=== PATIENT | female | born 1950 | race Caucasian/White ===

== ENCOUNTER 2017-05-05 14:06 | Emergency (ER) | payer MEDICARE ==
[~2017-05-05] VITALS: Ht 152.4 cm; Wt 76.4 kg
[~2017-05-05 14:06] MED LIST: AMLO5TAB22 PO; CIPR500T4 PO; HYDR-3533 PO; METR-1 PO; OMEP10CA37 PO; PRAV40TA2 PO; ZOFR4TAB3 PO
[2017-05-05 14:47] VITALS: BP 152/72; PULSE 68; RESP 16; TEMP 98.5; O2SAT 96
[2017-05-05] MEDS ORDERED: PRAV40TA2 PO (14:58)
[2017-05-05] MEDS ORDERED: AMLO5TAB2 PO (14:58)
[2017-05-05] MEDS ORDERED: OMEP10CA PO (14:58)
--- NOTE | 2017-05-05 15:30 | PD ---
HPI Chief Complaint: Fall Time Seen by Provider: 15:21 Travel History International Travel<30 days: No Contact w/Intl Traveler<30days: No Traveled to known affect area: No History of Present Illness HPI 67-year-old female complains of left shoulder pain, left hip pain, bilateral knee pain and left ankle pain. Patient states that she fell 2 days ago. Patient denies loss of consciousness. Patient denies any headache or neck pain. Patient complains of sharp pain localized to the posterior aspect left shoulder, lateral aspect left hip, anterior aspect of both knees and the left ankle. Patient denies any chest pain or shortness of breath. Patient denies abdominal pain. Patient denies any back pain. Patient denies any weakness or numbness of the extremity. PFSH Past Medical History Anxiety: Yes Cardiovascular Problems: Yes (htn on meds) High Cholesterol: Yes Diminished Hearing: No GERD: Yes Hypertension: Yes Musculoskeletal: Yes (chronic right knee pain) Immunizations Current: Yes Tetanus Vaccination: < 5 Years Influenza Vaccination: Yes ?: Not Past Surgical History Abdominal Surgery: Yes (COLON RESECTION (OBSTRUCTION)) Section: Yes (X 2) Eye Surgery: Yes (COSMETIC EYE SURGERY) Hysterectomy: Yes Oral Surgery: Yes (dential implant) Other Surgery: Yes (ADHESION RELEASE/TUMMY TUCK) Social History Alcohol Use: Yes (RARELY) Tobacco Use: No (quit 40+yrs anny) Substance Use: No Allergies-Medications (Allergen,Severity, Reaction): Coded Allergies: phenazopyridine (Unverified Allergy, Mild, rash, 05/05/17) Reported Meds & Prescriptions Reported Meds & Active Scripts Active Reported Pravastatin 40 Mg Tab 40 Mg PO DAILY Omeprazole 10 Mg Cap 10 Mg PO DAILY Amlodipine (Amlodipine Besylate) 5 Mg Tab 5 Mg PO DAILY Review of Systems General / Constitutional: No: Fever Eyes: No: Visual changes HENT: No: Headaches Cardiovascular: No: Chest Pain or Discomfort Respiratory: No: Shortness of Breath Gastrointestinal: No: Abdominal Pain Genitourinary: No: Dysuria Musculoskeletal: Positive: Pain Skin: No Rash Neurologic: No: Weakness Psychiatric: No: Depression Endocrine: No: Polydipsia Hematologic/Lymphatic: No: Easy Bruising Physical Exam Narrative GENERAL: Well-nourished, well-developed patient. SKIN: Focused skin assessment warm/dry. HEAD: Normocephalic. EYES: No scleral icterus. No injection or drainage. NECK: Supple, trachea midline. No JVD or lymphadenopathy. CARDIOVASCULAR: Regular rate and rhythm without murmurs, gallops, or rubs. RESPIRATORY: Breath sounds equal bilaterally. No accessory muscle use. GASTROINTESTINAL: Abdomen soft, non-tender, nondistended. MUSCULOSKELETAL: Patient has mild to moderate tenderness diffusely over the left shoulder, lateral aspect left hip, anterior aspect of both knees, diffuse over the anterior lateral aspect the left ankle. Full range of motion all extremity. Joints are stable. No deformity noted. BACK: Nontender without obvious deformity. No CVA tenderness. Neurologic exam normal. Data Data Last Documented VS Vital Signs Date Time Temp Pulse Resp B/P (MAP) Pulse Ox O2 Delivery O2 Flow Rate FiO2 05/05/17 14:50 68 16 95 Room Air 05/05/17 14:47 98.5 152/72 (98) Orders Orders Ankle, Complete ([id number]) (05/05/17 15:25) Hip, Uni(Ap&Lat) W Ap Pelvis (05/05/17 15:25) Knee, Ltd (1 Or 2vws) (05/05/17 15:25) Shoulder, Limited(2vws) (05/05/17 15:25) Knee, Ltd (1 Or 2vws) (05/05/17 15:25) MDM Medical Decision Making Medical Screen Exam Complete: Yes Emergency Medical Condition: Yes Interpretation(s) Last Impressions Shoulder X-Ray 05/05/17 1525 Signed Impressions: Service Date/Time: Friday, May 05, 2017 15:42 - CONCLUSION: 1. Mild degenerative changes in the a.c. joint. 2. No acute fracture. Rolando Jimenez MD Knee X-Ray 05/05/17 152 Signed Impressions: Service Date/Time: Friday, May 05, 2017 15:42 - CONCLUSION: 1. Tricompartmental osteoarthritis. No acute fracture identified. Rolando Jimenez MD Ankle X-Ray 05/05/17 1525 Signed Impressions: Service Date/Time: Friday, May 05, 2017 15:42 - CONCLUSION: 1. Evidence of old avulsion injuries from the medial malleolus. No definite acute fracture seen. Rolando Jimenez MD 1653 PM. X-ray shows no acute bony injury. Differential Diagnosis Differential diagnosis including contusion, fracture, dislocation. Narrative Course 67-year-old female with multiple injuries from a fall 2 days ago. Diagnosis Primary Impression: Left ankle sprain Qualified Codes: S93.402A - Sprain of unspecified ligament of left ankle, initial encounter Additional Impressions: Contusion of knee Qualified Codes: S80.00XA - Contusion of unspecified knee, initial encounter Contusion of shoulder, left Qualified Codes: S40.012A - Contusion of left shoulder, initial encounter Patient Instructions: General Instructions Additional Instructions: Take medications as needed for pain. Follow with an orthopedist if persistent problem. Med/Other Pt SpecificInfo: Prescription(s) given Scripts Tramadol (Ultram) 50 Mg Tab 50 MG PO Q6H Y for PAIN, #20 TAB 0 Refills Prov: Cr Casarez MD 05/05/17 Ibuprofen (Ibuprofen) 400 Mg Tab 400 MG PO TID for Pain, #30 TAB 0 Refills Prov: Cr Casarez MD 05/05/17 Disposition: 01 DISCHARGE HOME Condition: Stable Cr Casarez MD May 05, 2017 15:30
--- NOTE | 2017-05-05 16:03 | RADRPT ---
EXAM DATE/TIME: 05/05/2017 15:42 [facility] COMPARISON: No previous studies available for comparison. INDICATIONS : Left ankle pain post fall two days ago MEDICAL HISTORY : None. SURGICAL HISTORY : None. ENCOUNTER: Initial ACUITY: 2 days PAIN SCORE: 7/10 LOCATION: Left posterior ankle FINDINGS: The exam demonstrates multiple small, old bone fragment along the inferior aspect of the medial malle olus. The ankle mortise is otherwise intact. No definite acute fracture is seen. There is mild soft t issue swelling. CONCLUSION: 1. Evidence of old avulsion injuries from the medial malleolus. No definite acute fracture seen. Rolando Jimenez MD on May 05, 2017 at 16:01 Board Certified Radiologist. This report was verified electronically.
--- NOTE | 2017-05-05 16:04 | RADRPT ---
EXAM DATE/TIME: 05/05/2017 15:42 [facility] COMPARISON: No previous studies available for comparison. INDICATIONS : Left knee pain post fall two days ago MEDICAL HISTORY : None. SURGICAL HISTORY : None. ENCOUNTER: Initial ACUITY: 2 days PAIN SCORE: 5/10 LOCATION: Left entire knee FINDINGS: The examination demonstrates moderate tricompartmental osteoarthritis. No significant joint effusion is seen. No destructive lesion is identified. CONCLUSION: 1. Tricompartmental osteoarthritis. No acute fracture identified. Rolando Jimenez MD on May 05, 2017 at 16:02 Board Certified Radiologist. This report was verified electronically.
--- NOTE | 2017-05-05 16:04 | RADRPT ---
EXAM DATE/TIME: 05/05/2017 15:42 [facility] COMPARISON: No previous studies available for comparison. INDICATIONS : Left shoulder pain post fall two days ago MEDICAL HISTORY : None. SURGICAL HISTORY : None. ENCOUNTER: Initial ACUITY: 2 days PAIN SCORE: 5/10 LOCATION: Left entire shoulder FINDINGS: The humeral head is well situated within the glenoid fossa. No definite fracture is identified. There are mild degenerative changes in the a.c. joint. The limited portion of lung apex visualized is clear. CONCLUSION: 1. Mild degenerative changes in the a.c. joint. 2. No acute fracture. Rolando Jimenez MD on May 05, 2017 at 16:02 Board Certified Radiologist. This report was verified electronically.
--- NOTE | 2017-05-05 16:17 | RADRPT ---
EXAM DATE/TIME: 05/05/2017 15:42 [facility] COMPARISON: No previous studies available for comparison. INDICATIONS : Right knee pain post fall two days ago MEDICAL HISTORY : None. SURGICAL HISTORY : None. ENCOUNTER: Initial ACUITY: 2 days PAIN SCORE: 5/10 LOCATION: Right entire knee FINDINGS: Two view examination of the right knee demonstrates no evidence of fracture or dislocation. Bony min eralization is normal. The suprapatellar soft tissues have a normal configuration. There is spur for mation off the superior aspect of the patella. CONCLUSION: 1. There is no evidence of acute fracture. Kwaku Drake MD on May 05, 2017 at 16:15 Board Certified Radiologist. This report was verified electronically.
--- NOTE | 2017-05-05 16:18 | RADRPT ---
EXAM DATE/TIME: 05/05/2017 15:42 [facility] COMPARISON: No previous studies available for comparison. INDICATIONS : Left hip pain post fall two days ago MEDICAL HISTORY : None. SURGICAL HISTORY : None. ENCOUNTER: Initial ACUITY: 2 days PAIN SCORE: 5/10 LOCATION: Left entire hip FINDINGS: Examination of the left hip was performed with AP Pelvis. The primary and secondary trabecular patte rn of the femoral neck is intact. The hip joint is of normal width without significant sclerosis or bony hypertrophy. The acetabulum is grossly intact. CONCLUSION: 1. There is no evidence of acute fracture. Kwaku Drake MD on May 05, 2017 at 16:16 Board Certified Radiologist. This report was verified electronically.
[2017-05-05] MEDS ORDERED: TRAM50 PO (16:57)
[2017-05-05] MEDS ORDERED: IBUP1TAB5 PO (16:57)
== END 2017-05-05 17:17 | disposition home or self-care (01) ==
LOC: PHED 14:06
DX: S93.402A Sprain of unspecified ligament of left ankle, initial encounter (principal); S80.01XA Contusion of right knee, initial encounter; S80.02XA Contusion of left knee, initial encounter; S40.012A Contusion of left shoulder, initial encounter; W19.XXXA Unspecified fall, initial encounter; I10 Essential (primary) hypertension; E78.00 Pure hypercholesterolemia, unspecified; Z88.8 Allergy status to other drugs, medicaments and biological substances
CPT/HCPCS: 73030; 73502; 73560; 73610; 99284